=== PATIENT | male | born 1945 | race Caucasian/White ===

== ENCOUNTER 2019-02-15 16:58 | Inpatient (IN) | payer BC, MEDICARE ==
[~2019-02-15] VITALS: Ht 165.1 cm; Wt 73.9 kg
[2019-02-15 17:36] VITALS: BP 144/82; PULSE 79; TEMP 98.1
[2019-02-15] MEDS ORDERED: PRINIVIL20 MG PO (18:30)
[2019-02-15] MEDS ORDERED: CALAN120 MG PO (18:31)
[2019-02-15] MEDS ORDERED: LIPITOR 40MG TA40 MG PO (18:32)
[2019-02-15] MEDS ORDERED: TOPROL XL 50MG50 MG PO (18:32)
--- NOTE | 2019-02-15 18:56 | NUR ---
Pt admit direct from office, initial assessments complete, med rec complete, left Pt call light in reach.
--- NOTE | 2019-02-15 18:57 | NUR ---
Report given to MARII Sy.
[2019-02-15 19:49] LABS: HEMATOCRIT 44.5 % (42.0-52.0); HEMOGLOBIN 14.9 g/dl (13.5-18.0); MEAN CELL VOLUME 87 fl (80.0-100.0); MEAN CORPUSCULAR HEMOGLOBIN 29 pg (27.0-31.0); MEAN CORPUSCULAR HGB CONC 34 g/dl (33.0-37.0); MEAN PLATELET VOLUME 9.6 fl (7.4-10.4); PLATELET COUNT 276 K/mm3 (130-400); RED BLOOD COUNT 5.09 M/mm3 (4.20-5.60); REDCELL DISTRIBUTION WIDTH-CV 14.3 % (11.5-14.5)
[2019-02-15 19:55] LABS: CALCIUM 9.4 mg/dL (8.4-10.2); CREATININE, serum 0.73 (0.66-1.25); POTASSIUM 3.8 mmol/L (3.4-5.0)
[2019-02-15 20:00] LABS: PROTHROMBIN TIME 11.5 SECONDS (9.7-12.8)
[2019-02-15 20:02] VITALS: BP 160/88; PULSE 80; TEMP 98
[2019-02-15 20:02] LABS: PARTIAL THROMBOPLASTIN TIME 27.4 SECONDS (26.0-37.0)
--- NOTE | 2019-02-15 21:00 | NUR ---
Initial shift assessment done- denies any chest pain- Tele on, no requests, understands to call for assistance to bathroom, will be NPO after MN- states understanding-
[2019-02-16 00:08] VITALS: BP 114/53; PULSE 44; TEMP 97.4
--- NOTE | 2019-02-16 00:22 | NUR ---
Tele calling- HR is in the low 40.s consistently now- pt sleeping- did wake him up for vitals- denies any pain - b/p 114/52,, Dr. Vasquez called regarding heart rate- will lower the limits on Tele to call to 30/min
[2019-02-16 05:10] VITALS: BP 154/85; PULSE 47; TEMP 97.6
--- NOTE | 2019-02-16 05:46 | NUR ---
Quiet night- HR 40-60/min during the nightshift- B/P stable, Up to bathroom with assist /walker, tolerated well,, has been NPO since MN, consent signed for heart cath
[2019-02-16 06:43] LABS: BASO % 0.5 % (0.0-2.0); EOS # 0.2 (0.0-0.7); EOS % 2.7 % (0-4.0); GRAN # 4.5 (1.4-6.5); HEMATOCRIT 44.2 % (42.0-52.0); HEMOGLOBIN 14.4 g/dl (13.5-18.0); LYMPH # 1.2 (1.2-3.4); LYMPH % 18.4 % (20.0-51.0); MEAN CELL VOLUME 89 fl (80.0-100.0); MEAN CORPUSCULAR HEMOGLOBIN 29 pg (27.0-31.0); MEAN CORPUSCULAR HGB CONC 33 g/dl (33.0-37.0); MEAN PLATELET VOLUME 10.2 fl (7.4-10.4); MONO # 0.5 (0.1-0.6); MONO % 7.1 % (1.7-9.3); PLATELET COUNT 267 K/mm3 (130-400); RED BLOOD COUNT 4.98 M/mm3 (4.20-5.60); REDCELL DISTRIBUTION WIDTH-CV 14.3 % (11.5-14.5)
[2019-02-16 07:04] LABS: ALBUMIN 3.8 gm/dL (3.5-5.0); BILIRUBIN,TOTAL 1.3 mg/dL (0.0-1.0); CALCIUM 9.3 mg/dL (8.4-10.2); CHOLESTEROL RISK RATIO 2.8; CREATININE, serum 0.71 (0.66-1.25); TOTAL PROTEIN 6.8 gm/dL (6.4-8.2)
[2019-02-16 07:07] LABS: TROPONIN-I 0.058 ng/mL (0.000-0.035)
[2019-02-16 08:09] VITALS: BP 138/78; PULSE 52; TEMP 98.1
--- NOTE | 2019-02-16 10:46 | NUR ---
Pt awake and alert upon entry, no C/O pain currently, medications given with sip of water, shift assessment complete, left Pt call light in reach, bed in lowest position.
[2019-02-16 11:09] VITALS: BP 151/73; PULSE 44; TEMP 97.9
--- NOTE | 2019-02-16 12:10 | NUR ---
BETTY met with the patient and his , Cata. The patient lives in [place] with Cata. The patient has a walker and reports independence with ADLs, has a walk-in shower. The patient's PCP is Dr. José Luis Cordova and patient receives medications from [facility] with no difficulties. The patient does not have advanced directives in the EMR but provided the completed forms. A copy was placed in the patient's chart. The patient plans to return home upon discharge with Cata providing transportation. There are no additional needs at this time.
[2019-02-16] MEDS ORDERED: PLAVIX 75MG TAB75 MG PO (15:04)
[2019-02-16] MEDS ORDERED: LIPITOR 80MG80 MG PO (15:04)
[2019-02-16] MEDS ORDERED: NITROSTAT0.4 MG/TAB SL (15:05)
[2019-02-16] MEDS ORDERED: ISMO 20MG20 MG PO (15:05)
[2019-02-16] MEDS ORDERED: TOPROL XL 50MG50 MG PO (15:06)
[2019-02-16] MEDS ORDERED: PRINIVIL20 MG PO (15:06)
--- NOTE | 2019-02-16 16:38 | NUR ---
Pt discharged to home to return Tuesday for procedure, escorted to entry, left with spouse via private auto.
== END 2019-02-16 16:30 | disposition home or self-care (01) | DRG 282 ==
LOC: MEDICAL 16:58
PROVIDERS: ADMIT Internal Medicine Interventional Cardiology
DX: I21.4 Non-ST elevation (NSTEMI) myocardial infarction (principal)

== ENCOUNTER 2019-02-20 07:44 | Day surgery (SDC) | payer BC ==
[2019-02-20] VITALS (255 sets, daily range): BP systolic 87–202; BP diastolic 45–100; PULSE 45–87; TEMP 98–99.6; O2SAT 70–100
[~2019-02-20] VITALS: Ht 165.1 cm; Wt 80.0 kg
[~2019-02-20 07:44] MED LIST: CALAN120 MG PO; ISMO 20MG20 MG PO; LIPITOR 40MG TA40 MG PO; LIPITOR 80MG80 MG PO; NITROSTAT0.4 MG/TAB SL; PLAVIX 75MG TAB75 MG PO; PRINIVIL20 MG PO; TOPROL XL 50MG50 MG PO
[2019-02-20 08:31] LABS: HEMATOCRIT 44.2 % (42.0-52.0); HEMOGLOBIN 14.4 g/dl (13.5-18.0); MEAN CELL VOLUME 90 fl (80.0-100.0); MEAN CORPUSCULAR HEMOGLOBIN 29 pg (27.0-31.0); MEAN CORPUSCULAR HGB CONC 33 g/dl (33.0-37.0); MEAN PLATELET VOLUME 9.7 fl (7.4-10.4); PLATELET COUNT 281 K/mm3 (130-400); RED BLOOD COUNT 4.94 M/mm3 (4.20-5.60); REDCELL DISTRIBUTION WIDTH-CV 14.3 % (11.5-14.5)
[2019-02-20 08:42] LABS: INR 0.9 (0.8-3.0); PROTHROMBIN TIME 10.8 SECONDS (9.7-12.8)
[2019-02-20 08:45] LABS: PARTIAL THROMBOPLASTIN TIME 26.3 SECONDS (26.0-37.0)
[2019-02-20 08:50] LABS: CALCIUM 9.3 mg/dL (8.4-10.2); CREATININE, serum 0.78 (0.66-1.25); POTASSIUM 4.4 mmol/L (3.4-5.0)
[2019-02-20] MEDS ORDERED: PLAVIX 75MG TAB75 MG PO (08:54)
[2019-02-20] MEDS ORDERED: IMDUR 30MG30 MG/TAB PO (08:54)
[2019-02-20] MEDS ORDERED: LIPITOR 80MG80 MG PO (08:54)
[2019-02-20] MEDS ORDERED: TOPROL XL 50MG50 MG PO (08:55)
[2019-02-20] MEDS ORDERED: NITROSTAT0.4 MG/TAB SL (08:56)
--- NOTE | 2019-02-20 11:18 | NUR ---
SEE MERGE DOCUMENTATION FOR MEDICATION ADMINISTRATION TIMES AND INTRA/POST PROCEDURE SEDATION ASSESSMENTS. PLAN FOR RIGHT RADIAL APPROACH. BARBEAU TEST WITH SLIGHT SLUGGISH RETURN OF SIGNAL BUT WITHIN 10 SECONDS. MD NOTIFIED, OK TO PROCEED PLANNED.
--- NOTE | 2019-02-20 12:45 | NUR ---
Pt transferred to ICU 7 at this time. On arrival, pt connected to VS's monitors. VS's WNL; pt A&Ox3. No s/sx of distress noted. Bedside handoff to Fany H[employer] SERVICE SUPERVISOR. Right radial site observed. TR band in place with 12mL air. No bleeding noted. Surrounding site soft to palpation. Pt denies pain/sensation change to right wrist or hand. Education provided regarding movement restriction and s/sx to report. All questions answered at this time.
[2019-02-20] MEDS ORDERED: ASPIRIN 81M81 MG/TA2 PO (12:50)
--- NOTE | 2019-02-20 12:56 | NUR ---
Dr Vasquez called for order clarification. States will place orders.
--- NOTE | 2019-02-20 15:27 | NUR ---
Attempted to remove 2 ml of air from right wrist TR band. Site began to ooze. Air reinstilled and will continue to follow.
--- NOTE | 2019-02-20 16:14 | NUR ---
Attempted to call Dr Vasquez back regarding order clarification. No answer and unable to leave a message. Called 's office and was transfered to nurse. Again no answer but message was left.
--- NOTE | 2019-02-20 16:36 | NUR ---
TELE DESK INFORMED ROOM 7 WAS BRADYCARDIC. IMMEDIATELY PT WAS CHECKED ON - UPON ENTERING THE ROOM PT WAS SITTING UP IN BED, WAS ALERT, AND PT WAS ASKED IF HE FELT OK. PT STATED ABOUT TEN MINUTES AGO HE STARTED FEELING A LITTLE FLUSHED. WHEN ASKED IF HES HAVING ANY CHEST PAIN OR PRESSURE, PT STATED NO, BUT HE FEELS LIKE HE'S HAVING HEARTBURN. BP RECYCLED WHILE CONTACTING PROVIDER. 1639: CONTACTED CHARGE NURSE TO ASSIST WITH PT DUE TO UNABLE TO MAKE CONTACT WITH PROVIDER AT THE CURRENT TIME. CRASH CART BROUGHT TO ROOM. 1640: MADE CONTACT WITH AND GAVE ORDERS.
--- NOTE | 2019-02-20 17:27 | NUR ---
Dr Vasquez in to see pt at this time. Stated will address home meds and and post cath TR band orders.
--- NOTE | 2019-02-20 19:24 | NUR ---
Report given to Prisca and care transfered.
--- NOTE | 2019-02-20 19:30 | NUR ---
PT in bed resting, denies pain. VS stable, sight has no active bleeding, only dry blood is seen from previous shift. Will continue to monitor.
--- NOTE | 2019-02-20 21:15 | NUR ---
Decreased air in band by 2cc's. No bleeding noted. Will continue to monitor.
--- NOTE | 2019-02-20 23:15 | NUR ---
Decreased air in radial band by 2 cc's. No bleeding at site. Will continue to monitor.
[2019-02-21] VITALS (76 sets, daily range): BP systolic 136–165; BP diastolic 74–83; PULSE 54–84; TEMP 97.8–98.7; O2SAT 95–100
--- NOTE | 2019-02-21 00:50 | NUR ---
3 mls of air removed from radial band. No bleeding noted. Will contiue to monitor.
--- NOTE | 2019-02-21 03:00 | NUR ---
1 mls of air removed from radial band. No bleeding noted. Removed band and placed bandaid over site. Will continue to monitor.
[2019-02-21 06:40] LABS: BASO % 0.2 % (0.0-2.0); EOS # 0.1 (0.0-0.7); GRAN # 7.8 (1.4-6.5); GRAN % 81.2 % (42.2-75.2); HEMATOCRIT 45.9 % (42.0-52.0); HEMOGLOBIN 15.2 g/dl (13.5-18.0); LYMPH # 1.1 (1.2-3.4); LYMPH % 11.7 % (20.0-51.0); MEAN CELL VOLUME 89 fl (80.0-100.0); MEAN CORPUSCULAR HEMOGLOBIN 29 pg (27.0-31.0); MEAN CORPUSCULAR HGB CONC 33 g/dl (33.0-37.0); MEAN PLATELET VOLUME 9.4 fl (7.4-10.4); MONO # 0.5 (0.1-0.6); MONO % 5.6 % (1.7-9.3); PLATELET COUNT 267 K/mm3 (130-400); RED BLOOD COUNT 5.17 M/mm3 (4.20-5.60); REDCELL DISTRIBUTION WIDTH-CV 14.4 % (11.5-14.5)
[2019-02-21 06:43] LABS: CALCIUM 9.2 mg/dL (8.4-10.2); CREATININE, serum 0.68 (0.66-1.25); POTASSIUM 4.1 mmol/L (3.4-5.0)
--- NOTE | 2019-02-21 07:00 | NUR ---
Report given to MARII Soares and MARII Cannon.
--- NOTE | 2019-02-21 10:24 | NUR ---
SLEEPING CAR CONDUCTOR student met with the patient and his , Cata to discuss a discharge plan. The patient lives in [place] with Cata. The patient has a walker and reports independence with ADLs. The patient's PCP is Dr. José Luis Cordova and patient receives medications from [facility] with no difficulties. The patient has advanced directives in the EMR. The patient plans to return home upon discharge with Cata providing transportation. There are no additional needs at this time.
--- NOTE | 2019-02-21 11:00 | NUR ---
pt discharged to home. belongings given back to pt and IV taken out. all discharge paperwork given and reviewed with patient. pt escorted out to private car with and family.
== END 2019-02-21 11:05 | disposition home or self-care (01) ==
LOC: COL.CAR 07:44 → ICU 13:07 → COL.CAR 02-21 11:05
PROVIDERS: Internal Medicine Interventional Cardiology
DX: I25.118 Atherosclerotic heart disease of native coronary artery with other forms of angina pectoris (principal); I10 Essential (primary) hypertension; R00.1 Bradycardia, unspecified; Z79.899 Other long term (current) drug therapy; Z79.82 Long term (current) use of aspirin; G47.30 Sleep apnea, unspecified; R33.9 Retention of urine, unspecified
CPT/HCPCS: OP; C1725; C1769; C1874; C1887; C9600; J0360; J0461; J0583; J1644; J2250; J3010; Q9967

== ENCOUNTER → 2019-03-27 | Outpatient (CLI) | payer BC ==
[~2019-03-27] MED LIST changes: +ASPIRIN 81M81 MG/TA2 PO; +IMDUR 30MG30 MG/TAB PO
== END ==
LOC: COL.CARD 12:56
DX: R00.1 Bradycardia, unspecified (principal)

== ENCOUNTER → 2019-05-07 | Outpatient (CLI) | payer BC ==
[2019-05-07 10:31] LABS: HEMATOCRIT 42.8 % (42.0-52.0); HEMOGLOBIN 14.2 g/dl (13.5-18.0); MEAN CELL VOLUME 86 fl (80.0-100.0); MEAN CORPUSCULAR HEMOGLOBIN 29 pg (27.0-31.0); MEAN CORPUSCULAR HGB CONC 33 g/dl (33.0-37.0); MEAN PLATELET VOLUME 9.6 fl (7.4-10.4); PLATELET COUNT 294 K/mm3 (130-400); RED BLOOD COUNT 4.97 M/mm3 (4.20-5.60); REDCELL DISTRIBUTION WIDTH-CV 15.8 % (11.5-14.5)
[2019-05-07 10:41] LABS: CALCIUM 9.3 mg/dL (8.4-10.2); CREATININE, serum 0.61 (0.66-1.25)
== END ==
LOC: COL.LAB 09:49
PROVIDERS: Internal Medicine Interventional Cardiology
DX: I45.10 Unspecified right bundle-branch block (principal); R00.1 Bradycardia, unspecified

== ENCOUNTER → 2022-01-01 | Outpatient (CLI) | payer MEDICARE, BC ==
[2022-01-01 12:25] LABS: INR 2.5 (0.8-3.0); PROTHROMBIN TIME 29.1 SECONDS (9.7-12.8)
[2022-01-01 17:48] LABS: HEMOGLOBIN 12.6 g/dl (13.5-18.0); MEAN CELL VOLUME 86 fl (80.0-100.0); MEAN CORPUSCULAR HEMOGLOBIN 29 pg (27-31); MEAN CORPUSCULAR HGB CONC 34 g/dl (33.0-37.0); MEAN PLATELET VOLUME 9.5 fl (7.4-10.4); PLATELET COUNT 239 K/mm3 (130-400); RED BLOOD COUNT 4.28 M/mm3 (4.20-5.60); REDCELL DISTRIBUTION WIDTH-CV 15.6 % (11.5-14.5)
[2022-01-01 17:49] LABS: HEMATOCRIT 36.9 % (42.0-52.0)
[2022-01-01 18:00] LABS: CALCIUM 8.9 mg/dL (8.4-10.2); CREATININE, serum 1.29 mg/dL (0.72-1.25); POTASSIUM 3.6 mmol/L (3.5-4.5)
[2022-01-02 07:54] LABS: PT G20210A MUTATION B Negative (Negative)
[2022-01-02 07:54] LABS: FACTOR V LEIDEN MUTATION B Negative (Negative)
[2022-01-04 15:10] LABS: LUPUS ANTICOAGULANT INR 1.7 (0.7-1.3)
[2022-01-05 08:17] LABS: LUPUS ANTICOAG DRVVT CONFIRM 2.55 ratio (()); LUPUS DRVVT RATIO 1.08 ratio (())
[2022-01-05 10:29] LABS: ANTI-THROMBIN III 145 % (72-128)
== END ==
LOC: COL.LAB 10:19
PROVIDERS: Internal Medicine Interventional Cardiology
DX: Z01.812 Encounter for preprocedural laboratory examination (principal); I82.422 Acute embolism and thrombosis of left iliac vein

== ENCOUNTER 2024-02-13 17:14 | Emergency (ER) | payer MEDICARE, BC ==
[~2024-02-13] VITALS: Ht 162.6 cm; Wt 77.3 kg
[2024-02-13 17:19] VITALS: TEMP 98.6
[2024-02-13 18:04] LABS: BASO % 0.3 % (0.0-2.0); EOS # 0.4 K/mm3 (0.0-0.7); GRAN # 4.9 K/mm3 (1.4-6.5); GRAN % 67.2 % (42.2-75.2); HEMATOCRIT 38.5 % (42.0-52.0); HEMOGLOBIN 12.9 g/dl (13.5-18.0); LYMPH # 1.3 K/mm3 (1.2-3.4); LYMPH % 18.5 % (20.0-51.0); MEAN CELL VOLUME 91 fl (80.0-100.0); MEAN CORPUSCULAR HEMOGLOBIN 31 pg (27-31); MEAN CORPUSCULAR HGB CONC 34 g/dl (33.0-37.0); MONO # 0.6 K/mm3 (0.1-0.6); MONO % 8.7 % (1.7-9.3); PLATELET COUNT 232 K/mm3 (130-400); RED BLOOD COUNT 4.23 M/mm3 (4.20-5.60); REDCELL DISTRIBUTION WIDTH-CV 14.9 % (11.5-14.5)
[2024-02-13 18:24] LABS: ALBUMIN 3.5 g/dL (3.4-4.8); BILIRUBIN,TOTAL 0.6 mg/dL (0.2-1.2); CALCIUM 8.7 mg/dL (8.4-10.2); CREATININE, serum 0.82 mg/dL (0.72-1.25); POTASSIUM 4.1 mEq/L (3.5-4.5); TOTAL PROTEIN 6.7 g/dl (6.2-8.1)
[2024-02-13 18:30] LABS: TROPONIN-I 0.029 ng/mL (0.00-0.033)
[2024-02-13] MEDS ORDERED: NS 100 ML IV ONE (18:54)
[2024-02-13] MEDS ORDERED: Iohexol 350 - 100 ML VIAL IV ONE (18:54)
[2024-02-13 20:10] VITALS: BP 134/84; PULSE 60
== END 2024-02-13 20:10 | disposition home or self-care (01) ==
LOC: COL.ER 17:14
PROVIDERS: Nurse Practitioner Primary Care
DX: R06.02 Shortness of breath (principal)
CPT/HCPCS: Q9967

== ENCOUNTER → 2024-02-13 | Outpatient (CLI) | payer MEDICARE, BC ==
[~2024-02-13] MED LIST changes: +ASPRUZYO SPRIN500 MG PO; +CEFAZOLIN SODIUM2 GM IV; +CRESTOR40 MG PO; +DEMADEX 20MG20 M1 PO; +DESYREL 50MG50 MG PO; +DIOVAN 80MG80 MG PO; +HCTZ 25MG TAB25 MG PO; +IRON TABLETS325 MG PO; +ISOSORBIDE MON120 MG PO; +LEXAPRO20 MG PO; +LOVENOX 8080 MG/0.8 SQ; +RANEXA 500MG T500 MG PO; +XARELTO10 MG PO; +XARELTO20 MG PO; +ZETIA 10MG TAB10 MG PO
[2024-02-13 11:47] LABS: BASO % 0.2 % (0.0-2.0); EOS # 0.3 K/mm3 (0.0-0.7); EOS % 3.6 % (0.0-4.0); GRAN % 73.1 % (42.2-75.2); HEMATOCRIT 39.4 % (42.0-52.0); HEMOGLOBIN 13.4 g/dl (13.5-18.0); LYMPH # 1.2 K/mm3 (1.2-3.4); LYMPH % 14.3 % (20.0-51.0); MEAN CELL VOLUME 90 fl (80.0-100.0); MEAN CORPUSCULAR HEMOGLOBIN 31 pg (27-31); MEAN CORPUSCULAR HGB CONC 34 g/dl (33.0-37.0); MEAN PLATELET VOLUME 9.1 fl (7.4-10.4); MONO # 0.7 K/mm3 (0.1-0.6); MONO % 8.6 % (1.7-9.3); PLATELET COUNT 233 K/mm3 (130-400); RED BLOOD COUNT 4.38 M/mm3 (4.20-5.60); REDCELL DISTRIBUTION WIDTH-CV 14.6 % (11.5-14.5)
[2024-02-13 11:58] LABS: ALBUMIN 3.6 g/dL (3.4-4.8); BILIRUBIN,TOTAL 0.8 mg/dL (0.2-1.2); CALCIUM 9.5 mg/dL (8.4-10.2); CREATININE, serum 0.84 mg/dL (0.72-1.25); POTASSIUM 4.3 mEq/L (3.5-4.5); TOTAL PROTEIN 6.9 g/dl (6.2-8.1)
[2024-02-13 14:35] LABS: TROPONIN-I 0.034 ng/mL (0.00-0.033)
== END ==
LOC: COL.LAB 10:38
PROVIDERS: Nurse Practitioner
DX: I10 Essential (primary) hypertension (principal); I25.10 Atherosclerotic heart disease of native coronary artery without angina pectoris